=== PATIENT | male | born 1930 | race Caucasian/White ===

== ENCOUNTER 2019-04-07 05:51 | Day surgery (SDC) | payer OTHER ==
[2019-04-06 15:14] LABS: BASOPHILS # (AUTO) 0.1 X10'3 (0-0.2); BASOPHILS % (AUTO) 1.2 % (0-1); EOSINOPHILS # (AUTO) 0.1 X10'3 (0-0.9); EOSINOPHILS % (AUTO) 1.5 % (0-6); HEMOGLOBIN 13.3 g/dl (14.0-17.9); LYMPHOCYTES # (AUTO) 1.6 X10'3 (1.1-4.8); LYMPHOCYTES % (AUTO) 17.5 % (21-51); MEAN CORPUSCULAR HEMOGLOBIN 31.4 PG (27.0-31.0); MEAN CORPUSCULAR HGB CONC 33.2 g/dL (33.0-36.5); MEAN CORPUSCULAR VOLUME 94.7 FL (78-98); MEAN PLATELET VOLUME 8.5 FL (7.4-10.4); MONOCYTES # (AUTO) 0.8 X10'3 (0-0.9); MONOCYTES % (AUTO) 8.3 % (2-12); NEUTROPHILS # (AUTO) 6.7 X10'3 (1.8-7.7); NEUTROPHILS % (AUTO) 71.5 % (42-75); PLATELET COUNT 252 X10'3 (140-440); RED BLOOD COUNT 4.23 X10'6 (4.70-6.10); RED CELL DISTRIBUTION WIDTH 13.9 % (11.5-14.5); WHITE BLOOD COUNT 9.4 X10'3 (4.5-11.0)
[2019-04-06 15:18] LABS: ALBUMIN 3.5 G/DL (3.4-5.0); ANION GAP 6 (8-16); BLOOD UREA NITROGEN 29 MG/DL (7-18); BUN/CREATININE RATIO 22.7 (5.4-32.0); CALCIUM 8.7 MG/DL (8.5-10.1); CHLORIDE 109 MMOL/L (99-107); CREATININE 1.28 MG/DL (0.60-1.10); GLUCOSE 99 MG/DL (70-104); POTASSIUM 3.1 MMOL/L (3.5-5.1); SODIUM 145 MMOL/L (135-145); TOTAL CARBON DIOXIDE 29.8 MMOL/L (24-32); eGFR 53 ML/MIN
[2019-04-06 15:31] LABS: PARTIAL THROMBOPLASTIN TIME 30 SECONDS (22-32)
[2019-04-07] VITALS (17 sets, daily range): BP systolic 126–203; BP diastolic 62–105
[~2019-04-07] VITALS: Ht 182.9 cm; Wt 69.1 kg
[2019-04-07] MEDS ORDERED: LIDOcaine/PRILOcaine 5gm cream TP ONE (06:15)
[2019-04-07] MEDS ORDERED: diphenhydrAMINE 25mg capsule PO PRN (06:15)
[2019-04-07] MEDS ORDERED: normal saline 1,000 ML IV SCH (06:15)
[2019-04-07] MEDS ORDERED: acetylcysteine 200 MG/ml 4ml vial PO PRN (06:15)
[2019-04-07] MEDS ORDERED: LORazepam 0.5 MG tablet PO PRN (06:15)
[2019-04-07] MEDS ORDERED: FURO-149 PO (06:37)
[2019-04-07] MEDS ORDERED: ECHI350C PO (06:37)
[2019-04-07] MEDS ORDERED: CARV-50 PO (06:37)
[2019-04-07] MEDS ORDERED: GINK120C PO (06:37)
[2019-04-07] MEDS ORDERED: BUDE0.256 NEB (06:37)
[2019-04-07] MEDS ORDERED: LUTE1CAP6 PO (06:37)
[2019-04-07] MEDS ORDERED: ATOR40TA PO (06:37)
[2019-04-07] MEDS ORDERED: AMLO-314 PO (06:37)
[2019-04-07] MEDS ORDERED: CLOP75TA35 PO (06:37)
[2019-04-07] MEDS ORDERED: ASPI-1053 PO (06:37)
[2019-04-07] MEDS ORDERED: MELA3TAB64 PO (06:37)
[2019-04-07] MEDS ORDERED: LACT1CAP65 PO (06:37)
[2019-04-07] MEDS ORDERED: MAGN296S50 PO (06:37)
[2019-04-07] MEDS ORDERED: NIT5P TD (06:37)
[2019-04-07] MEDS ORDERED: DICL75TA5 PO (06:37)
[2019-04-07] MEDS ORDERED: MULT1TAB74 PO (06:37)
[2019-04-07] MEDS ORDERED: POTA10TA19 PO (06:37)
[2019-04-07] MEDS ORDERED: LOSA100T57 PO (06:37)
[2019-04-07] MEDS ORDERED: TIOT18CA3 INH (06:37)
[2019-04-07] MEDS ORDERED: verapamil 2.5 mg/ml inj IV ONE (07:36)
[2019-04-07] MEDS ORDERED: nitroGLYCERIN-Tridil 50MG/D5W 250 ML IV ONE (07:36)
[2019-04-07] MEDS ORDERED: midazolam 2 mg/2 ml injection ONE (07:36)
[2019-04-07] MEDS ORDERED: LIDOcaine 1% (10mg/ml)w/preservative injection 20ml MDV ONE (07:37)
[2019-04-07] MEDS ORDERED: heparin 1,000unit/ml 10ml vial 10 ML ONE (07:37)
[2019-04-07] MEDS ORDERED: fentaNYL/PF 50MCG/1 ML 2ML syringe ONE (07:37)
[2019-04-07] MEDS ORDERED: iohexol 350 MG/ML 50ML vial IV ONE (07:37)
[2019-04-07] MEDS ORDERED: iohexol 350MG/ML 100ml bottle IV ONE ×2 (07:37→08:40)
[2019-04-07] MEDS ORDERED: sodium bicarbonate (8.4%) inj. 75 ML in dextrose 5%-water 500 ML IV ONE (07:55)
[2019-04-07] MEDS ORDERED: acetylcysteine 200 MG/ml 4ml vial PO SCH (09:28)
[2019-04-07] MEDS ORDERED: potassium Cl 20 mEq SR tablet PO ONE (09:30)
[2019-04-07] MEDS ORDERED: potassium Cl 20 mEq SR tablet PO PRN (09:30)
[2019-04-07 11:11] LABS: ISTAT Hct MIX 36 %PCV (42-52); ISTAT O2 SATURATION MIX VENOUS 67 % (60-80); ISTAT SOURCE MIX
[2019-04-07 11:11] LABS: ISTAT HGB ART 12.2 g/dl (14.0-18.0); ISTAT Hct ART 36 %PCV (42-52); ISTAT O2 SATURATION ARTERIAL 97 % (95-98); ISTAT SOURCE ART
[2019-04-07 14:17] LABS: ALBUMIN 3.1 G/DL (3.4-5.0); ANION GAP 9 (8-16); BLOOD UREA NITROGEN 18 MG/DL (7-18); BUN/CREATININE RATIO 14.8 (5.4-32.0); CALCIUM 8.4 MG/DL (8.5-10.1); CHLORIDE 109 MMOL/L (99-107); CREATININE 1.22 MG/DL (0.60-1.10); GLUCOSE 111 MG/DL (70-104); POTASSIUM 3.1 MMOL/L (3.5-5.1); SODIUM 148 MMOL/L (135-145); TOTAL CARBON DIOXIDE 30.3 MMOL/L (24-32); eGFR 56 ML/MIN
[2019-04-07] MEDS ORDERED: potassium Cl 20 mEq SR tablet PO STA (14:43)
--- NOTE | 2019-04-07 16:00 | NUR ---
Problems reprioritized. Patient report given, questions answered & plan of care reviewed with MANDIE GRACE.
== END 2019-04-07 18:00 | disposition home or self-care (01) ==
LOC: SSTAY O 05:51
PROVIDERS: ATTEND Internal Medicine Cardiovascular Disease
DX: I25.10 Atherosclerotic heart disease of native coronary artery without angina pectoris (principal); I48.91 Unspecified atrial fibrillation; I35.0 Nonrheumatic aortic (valve) stenosis; E78.5 Hyperlipidemia, unspecified; Z87.891 Personal history of nicotine dependence; I50.30 Unspecified diastolic (congestive) heart failure; I11.0 Hypertensive heart disease with heart failure
CPT/HCPCS: 36415; 80048; 82803; 85014; 85025; 85610; 85730; 93005; 93460; 93567; 99152; 99153; C1769; C1894; J1644; J2001; J2250; J3010; J7030; Q0163; Q9967; A4620; A5120; J3490

== ENCOUNTER 2019-05-04 20:14 | Inpatient (IN) | payer MEDICARE, MEDICAID ==
[~2019-05-04] VITALS: Ht 182.9 cm; Wt 68.6 kg
[~2019-05-04 20:14] MED LIST: AMLO-314 PO; ASPI-1053 PO; ATOR40TA PO; BUDE0.256 NEB; CARV-50 PO; CLOP75TA35 PO; DICL75TA5 PO; ECHI350C PO; FURO-149 PO; GINK120C PO; LACT1CAP65 PO; LOSA100T57 PO; LUTE1CAP6 PO; MAGN296S50 PO; MELA3TAB64 PO; MULT1TAB74 PO; NIT5P TD; POTA10TA19 PO; TIOT18CA3 INH
[2019-05-04] MEDS ORDERED: normal saline 1000ml 1,000 ML IV ONE (20:20)
[2019-05-04] MEDS ORDERED: normal saline 1000ML IV soln IVB ONE (20:20)
--- NOTE | 2019-05-04 20:20 | NUR ---
[facility].
[2019-05-04 20:39] LABS: CLARITY,URINE CLEAR (Clear); COLOR,URINE YELLOW (Yellow); GLUCOSE, URINE NEGATIVE (Neg); KETONES,URINE NEGATIVE (Neg); LEUKOCYTE ESTERASE ,URINE TRACE (Neg); NITRITES, URINE NEGATIVE (Neg); OCCULT BLOOD,URINE NEGATIVE (Neg); PH,URINE 6.5 (4.8-8.0); PROTEIN,URINE NEGATIVE (Neg); UA COLLECTION TYPE URINAL; UROBILINOGEN,URINE 0.2 E.U/dL (0.2-1.0)
[2019-05-04 20:40] LABS: BASOPHILS # (AUTO) 0.1 X10'3 (0-0.2); BASOPHILS % (AUTO) 1.1 % (0-1); EOSINOPHILS # (AUTO) 0.4 X10'3 (0-0.9); EOSINOPHILS % (AUTO) 4.3 % (0-6); HEMATOCRIT 42.3 % (42.0-52.0); HEMOGLOBIN 14.2 g/dl (14.0-17.9); LYMPHOCYTES # (AUTO) 1.8 X10'3 (1.1-4.8); LYMPHOCYTES % (AUTO) 21.1 % (21-51); MEAN CORPUSCULAR HEMOGLOBIN 31.4 PG (27.0-31.0); MEAN CORPUSCULAR HGB CONC 33.5 g/dL (33.0-36.5); MEAN CORPUSCULAR VOLUME 93.6 FL (78-98); MONOCYTES # (AUTO) 0.8 X10'3 (0-0.9); MONOCYTES % (AUTO) 9.1 % (2-12); NEUTROPHILS # (AUTO) 5.6 X10'3 (1.8-7.7); NEUTROPHILS % (AUTO) 64.4 % (42-75); PLATELET COUNT 257 X10'3 (140-440); RED BLOOD COUNT 4.52 X10'6 (4.70-6.10); RED CELL DISTRIBUTION WIDTH 14.4 % (11.5-14.5); WHITE BLOOD COUNT 8.8 X10'3 (4.5-11.0)
[2019-05-04 20:45] LABS: PARTIAL THROMBOPLASTIN TIME 28 SECONDS (22-32)
--- NOTE | 2019-05-04 20:46 | NUR ---
neuropsych on line with patient
[2019-05-04 20:51] LABS: ALANINE AMINOTRANSFERASE 27 U/L (12-78); ALBUMIN 3.9 G/DL (3.4-5.0); ALKALINE PHOSPHATASE 94 IU/L (46-116); ANION GAP 8 (8-16); ASPARTATE AMINO TRANSFERASE 21 U/L (10-37); BILIRUBIN,TOTAL 0.5 MG/DL (0.1-1.0); BLOOD UREA NITROGEN 23 MG/DL (7-18); BUN/CREATININE RATIO 18.1 (5.4-32.0); CHLORIDE 108 MMOL/L (99-107); CREATININE 1.27 MG/DL (0.60-1.10); GLUCOSE 110 MG/DL (70-104); MAGNESIUM 2.2 MG/DL (1.5-2.4); POTASSIUM 3.4 MMOL/L (3.5-5.1); SODIUM 147 MMOL/L (135-145); TOTAL CARBON DIOXIDE 31.5 MMOL/L (24-32); TOTAL PROTEIN 7.9 G/DL (6.4-8.2); eGFR 54 ML/MIN
[2019-05-04 21:02] LABS: BACTERIA,URINE FEW /HPF (Neg); HYALINE CASTS 0-3 /LPF (NEGATIVE); MUCUS STRANDS NONE SEEN /LPF (Neg); RBC,URINE NONE SEEN /HPF (0-2); SQUAMOUS EPITHELIAL CELL,UR NONE SEEN /LPF (FEW); WBC,URINE 0-4 /HPF (0-4)
--- NOTE | 2019-05-04 21:07 | NUR ---
stroke nurse at bedside, neuro on tele cart, family at bedside. pt's symptoms are resolving.
--- NOTE | 2019-05-04 21:10 | NUR ---
level 1 stroke alert, pt was in [place] eating dinner with sudden onset of not speaking, staring off, he had right side arm and leg weakness. SOC for telemed. neuro consult, Dr. Jain Per family he is much improved no weakness noted, he is having some word finding difficulty and some right side visual loss. ambulate without difficulty, steady on feet. Dr. Jain discusses tPA with family and pt, they want to hold off for now.
[2019-05-04] MEDS ORDERED: potassium Cl 10 mEq/100mL bag IV ONE (21:25)
--- NOTE | 2019-05-04 21:40 | NUR ---
Dr. Jain cameras back in. Family at bedside. and pt state he is much better and will hold off on tPA. Plan to admit and obtain EEG tomorrow. Pt has proxismal afib.
[2019-05-04] MEDS ORDERED: MELA1TAB28 PO (22:40)
[2019-05-04] MEDS ORDERED: LUTE1CAP6 PO (22:40)
[2019-05-04] MEDS ORDERED: POTA20PA40 PO (22:40)
[2019-05-04] MEDS ORDERED: ECHI125T PO (22:40)
[2019-05-04] MEDS ORDERED: DICL75TA5 PO (22:40)
[2019-05-04] MEDS ORDERED: BILB1CAP PO (22:40)
[2019-05-04] MEDS ORDERED: ondansetron/PF 4mg/2ml inj IV PRN (23:00)
[2019-05-04] MEDS ORDERED: mag hydrox/Alum hydrox/simeth 30ml oral suspension PO PRN (23:00)
[2019-05-04] MEDS ORDERED: acetaminophen 325mg tablet PO PRN (23:00)
[2019-05-05] VITALS: BP 178/76
[2019-05-05 01:55] VITALS: BP 165/78
[2019-05-05] MEDS ORDERED: MELATONIN PO PRN (02:50)
[2019-05-05] MEDS ORDERED: PYRIDOXINE HCL PO PRN (02:50)
[2019-05-05] MEDS: ipratropium 0.5 MG/2.5ML nebule IH SCH ×4 (02:58→20:52)
[2019-05-05 06:00] VITALS: BP 164/72
[2019-05-05 06:08] LABS: BASOPHILS % (AUTO) 0.2 % (0-1); EOSINOPHILS # (AUTO) 0.3 X10'3 (0-0.9); EOSINOPHILS % (AUTO) 2.7 % (0-6); HEMATOCRIT 37.4 % (42.0-52.0); HEMOGLOBIN 12.7 g/dl (14.0-17.9); LYMPHOCYTES # (AUTO) 1.8 X10'3 (1.1-4.8); LYMPHOCYTES % (AUTO) 16.8 % (21-51); MEAN CORPUSCULAR HEMOGLOBIN 31.8 PG (27.0-31.0); MEAN CORPUSCULAR VOLUME 93.5 FL (78-98); MEAN PLATELET VOLUME 8.2 FL (7.4-10.4); MONOCYTES % (AUTO) 9.2 % (2-12); NEUTROPHILS # (AUTO) 7.7 X10'3 (1.8-7.7); NEUTROPHILS % (AUTO) 71.1 % (42-75); PLATELET COUNT 218 X10'3 (140-440); RED CELL DISTRIBUTION WIDTH 14.6 % (11.5-14.5); WHITE BLOOD COUNT 10.9 X10'3 (4.5-11.0)
--- NOTE | 2019-05-05 06:35 | NUR ---
Problems reprioritized. Patient report given, questions answered & plan of care reviewed with MANDIE TATE.
[2019-05-05] MEDS: carVEDilol 12.5mg tablet PO SCH ×2 (07:45→20:11)
[2019-05-05] MEDS: lactobacillus rhamnosus 10,000 MMU CELLS/CAPSULE PO SCH (07:46)
[2019-05-05] MEDS: multivitamins, therapeutics tablet PO SCH (07:46)
[2019-05-05] MEDS: amLODIPine 5mg tablet PO SCH (07:46)
[2019-05-05] MEDS: atorvastatin 20mg tablet PO SCH (07:47)
[2019-05-05] MEDS ORDERED: ZEAXANTHIN PO SCH (08:00)
[2019-05-05] MEDS ORDERED: heparin, porcine 5000 units/ml vial SQ SCH (08:00)
[2019-05-05] MEDS ORDERED: aspirin 81mg tab.chew PO SCH (08:00)
[2019-05-05] MEDS ORDERED: LUTEIN PO SCH (08:00)
[2019-05-05] MEDS ORDERED: clopidogrel 75mg tablet PO SCH (08:00)
[2019-05-05] MEDS: budesonide 0.5mg/2ml UD nebule IH SCH ×2 (08:09→20:52)
[2019-05-05 09:26] LABS: ALANINE AMINOTRANSFERASE 20 U/L (12-78); ALBUMIN 3.2 G/DL (3.4-5.0); ALKALINE PHOSPHATASE 75 IU/L (46-116); ANION GAP 10 (8-16); ASPARTATE AMINO TRANSFERASE 18 U/L (10-37); BILIRUBIN,TOTAL 0.6 MG/DL (0.1-1.0); BLOOD UREA NITROGEN 18 MG/DL (7-18); BUN/CREATININE RATIO 18.6 (5.4-32.0); CALCIUM 8.5 MG/DL (8.5-10.1); CHLORIDE 111 MMOL/L (99-107); CREATININE 0.97 MG/DL (0.60-1.10); GLUCOSE 103 MG/DL (70-104); POTASSIUM 3.1 MMOL/L (3.5-5.1); SODIUM 145 MMOL/L (135-145); TOTAL CARBON DIOXIDE 24.3 MMOL/L (24-32); TOTAL PROTEIN 6.4 G/DL (6.4-8.2); eGFR 73 ML/MIN
[2019-05-05] MEDS ORDERED: LOSA50TA64 PO (09:56)
[2019-05-05 10:00] VITALS: BP_SYST 141
[2019-05-05 18:00] VITALS: BP 179/77
[2019-05-05] MEDS ORDERED: potassium Cl 20 mEq SR tablet PO PRN ×3 (19:35→20:00)
[2019-05-05] MEDS ORDERED: potassium CL 10mEq/100ml bag 100 ML IV PRN ×2 (19:35→20:00)
[2019-05-05] MEDS: apixaban 5mg tablet PO SCH (20:11)
[2019-05-05] MEDS: potassium Cl 20 mEq SR tablet PO PRN ×2 (20:11→23:06)
[2019-05-05 22:55] VITALS: BP 149/62
[2019-05-06 02:00] VITALS: BP 139/80
[2019-05-06] MEDS: ipratropium 0.5 MG/2.5ML nebule IH SCH ×4 (02:00→20:37)
[2019-05-06 06:00] VITALS: BP 150/89
--- NOTE | 2019-05-06 06:26 | NUR ---
reported to days. noted pt's alarms intact. resting w/o distress.
--- NOTE | 2019-05-06 06:34 | NUR ---
Patient in room ORTHO 4018. I have received report from Kelly LOCKWOOD and had the opportunity to ask questions and assume patient care.
[2019-05-06 06:36] LABS: BASOPHILS # (AUTO) 0.1 X10'3 (0-0.2); BASOPHILS % (AUTO) 1.2 % (0-1); EOSINOPHILS # (AUTO) 0.2 X10'3 (0-0.9); EOSINOPHILS % (AUTO) 2.4 % (0-6); HEMATOCRIT 38.6 % (42.0-52.0); HEMOGLOBIN 13.2 g/dl (14.0-17.9); LYMPHOCYTES # (AUTO) 1.6 X10'3 (1.1-4.8); LYMPHOCYTES % (AUTO) 16.4 % (21-51); MEAN CORPUSCULAR HGB CONC 34.3 g/dL (33.0-36.5); MEAN CORPUSCULAR VOLUME 93.4 FL (78-98); MEAN PLATELET VOLUME 8.3 FL (7.4-10.4); MONOCYTES # (AUTO) 0.9 X10'3 (0-0.9); MONOCYTES % (AUTO) 9.5 % (2-12); NEUTROPHILS % (AUTO) 70.5 % (42-75); PLATELET COUNT 226 X10'3 (140-440); RED BLOOD COUNT 4.13 X10'6 (4.70-6.10); RED CELL DISTRIBUTION WIDTH 14.6 % (11.5-14.5); WHITE BLOOD COUNT 9.9 X10'3 (4.5-11.0)
[2019-05-06 06:53] LABS: ALANINE AMINOTRANSFERASE 19 U/L (12-78); ALBUMIN 3.1 G/DL (3.4-5.0); ALBUMIN/GLOBULIN RATIO 0.9 (1.1-1.5); ALKALINE PHOSPHATASE 80 IU/L (46-116); ANION GAP 10 (8-16); ASPARTATE AMINO TRANSFERASE 20 U/L (10-37); BILIRUBIN,TOTAL 0.9 MG/DL (0.1-1.0); BLOOD UREA NITROGEN 20 MG/DL (7-18); BUN/CREATININE RATIO 17.7 (5.4-32.0); CALCIUM 8.7 MG/DL (8.5-10.1); CHLORIDE 109 MMOL/L (99-107); CREATININE 1.13 MG/DL (0.60-1.10); GLUCOSE 105 MG/DL (70-104); POTASSIUM 3.6 MMOL/L (3.5-5.1); SODIUM 143 MMOL/L (135-145); TOTAL CARBON DIOXIDE 24.2 MMOL/L (24-32); TOTAL PROTEIN 6.5 G/DL (6.4-8.2); eGFR 62 ML/MIN
[2019-05-06 07:25] LABS: CHOL/HDL RATIO 2.9 (0.00-4.99); CHOLESTEROL 117 MG/DL (0-200); HDL CHOLESTEROL 41 MG/DL (35-60); LDL CHOLESTEROL 68 MG/DL (50-100); TRIGLYCERIDES 83 MG/DL (20-135)
[2019-05-06] MEDS: budesonide 0.5mg/2ml UD nebule IH SCH ×2 (07:33→20:37)
[2019-05-06] MEDS: atorvastatin 20mg tablet PO SCH (07:54)
[2019-05-06] MEDS: carVEDilol 12.5mg tablet PO SCH ×2 (07:54→19:43)
[2019-05-06] MEDS: multivitamins, therapeutics tablet PO SCH (07:54)
[2019-05-06] MEDS: apixaban 5mg tablet PO SCH ×2 (07:54→19:43)
[2019-05-06] MEDS: lactobacillus rhamnosus 10,000 MMU CELLS/CAPSULE PO SCH (07:54)
[2019-05-06] MEDS: amLODIPine 5mg tablet PO SCH (07:54)
[2019-05-06] MEDS: magnesium hydroxide 30ml (MOM) UD suspension PO PRN (09:29)
[2019-05-06 10:00] VITALS: BP 144/91
[2019-05-06] MEDS: polyethylene glycol 3350 17gm powd pack PO SCH ×2 (14:10→19:43)
--- NOTE | 2019-05-06 17:35 | NUR ---
Student documentation: I have reviewed and agree with all interventions, assessments performed and documented by Mal Francis.
[2019-05-06 18:00] VITALS: BP 159/86
--- NOTE | 2019-05-06 18:14 | NUR ---
Problems reprioritized. Patient report given, questions answered & plan of care reviewed with Susan LOCKWOOD.
--- NOTE | 2019-05-06 18:33 | NUR ---
Patient in room ORTHO 4018. I have received report from MANDIE Crews and had the opportunity to ask questions and assume patient care.
[2019-05-06 22:00] VITALS: BP 141/68
[2019-05-07 02:00] VITALS: BP 121/69
[2019-05-07] MEDS: ipratropium 0.5 MG/2.5ML nebule IH SCH ×2 (02:53→08:26)
[2019-05-07 06:00] VITALS: BP 129/59
[2019-05-07 06:07] LABS: BASOPHILS # (AUTO) 0.1 X10'3 (0-0.2); EOSINOPHILS # (AUTO) 0.2 X10'3 (0-0.9); EOSINOPHILS % (AUTO) 1.9 % (0-6); HEMATOCRIT 38.3 % (42.0-52.0); HEMOGLOBIN 13.1 g/dl (14.0-17.9); LYMPHOCYTES # (AUTO) 1.7 X10'3 (1.1-4.8); LYMPHOCYTES % (AUTO) 17.4 % (21-51); MEAN CORPUSCULAR HEMOGLOBIN 31.6 PG (27.0-31.0); MEAN CORPUSCULAR HGB CONC 34.2 g/dL (33.0-36.5); MEAN CORPUSCULAR VOLUME 92.3 FL (78-98); MEAN PLATELET VOLUME 7.9 FL (7.4-10.4); MONOCYTES # (AUTO) 1.1 X10'3 (0-0.9); MONOCYTES % (AUTO) 11.1 % (2-12); NEUTROPHILS # (AUTO) 6.8 X10'3 (1.8-7.7); NEUTROPHILS % (AUTO) 68.6 % (42-75); PLATELET COUNT 236 X10'3 (140-440); RED BLOOD COUNT 4.15 X10'6 (4.70-6.10); RED CELL DISTRIBUTION WIDTH 14.3 % (11.5-14.5); WHITE BLOOD COUNT 9.9 X10'3 (4.5-11.0)
--- NOTE | 2019-05-07 06:20 | NUR ---
Patient in room ORTHO 4018. I have received report from Susan LOCKWOOD and had the opportunity to ask questions and assume patient care.
--- NOTE | 2019-05-07 06:20 | NUR ---
Problems reprioritized. Patient report given, questions answered & plan of care reviewed with MANDIE Crews.
[2019-05-07 06:22] LABS: ALANINE AMINOTRANSFERASE 19 U/L (12-78); ALBUMIN/GLOBULIN RATIO 0.9 (1.1-1.5); ALKALINE PHOSPHATASE 78 IU/L (46-116); ANION GAP 7 (8-16); ASPARTATE AMINO TRANSFERASE 17 U/L (10-37); BILIRUBIN,TOTAL 0.7 MG/DL (0.1-1.0); BLOOD UREA NITROGEN 24 MG/DL (7-18); BUN/CREATININE RATIO 18.2 (5.4-32.0); CALCIUM 8.6 MG/DL (8.5-10.1); CHLORIDE 106 MMOL/L (99-107); CREATININE 1.32 MG/DL (0.60-1.10); GLUCOSE 114 MG/DL (70-104); MAGNESIUM 2.2 MG/DL (1.5-2.4); POTASSIUM 3.6 MMOL/L (3.5-5.1); SODIUM 140 MMOL/L (135-145); TOTAL PROTEIN 6.3 G/DL (6.4-8.2); eGFR 51 ML/MIN
[2019-05-07] MEDS: multivitamins, therapeutics tablet PO SCH (07:29)
[2019-05-07] MEDS: atorvastatin 20mg tablet PO SCH (07:29)
[2019-05-07] MEDS: carVEDilol 12.5mg tablet PO SCH (07:29)
[2019-05-07] MEDS: amLODIPine 5mg tablet PO SCH (07:29)
[2019-05-07] MEDS: apixaban 5mg tablet PO SCH (07:29)
[2019-05-07] MEDS: lactobacillus rhamnosus 10,000 MMU CELLS/CAPSULE PO SCH (07:29)
[2019-05-07] MEDS: magnesium hydroxide 30ml (MOM) UD suspension PO PRN (07:29)
[2019-05-07] MEDS: budesonide 0.5mg/2ml UD nebule IH SCH (08:26)
[2019-05-07 09:53] VITALS: BP 161/83
[2019-05-07] MEDS ORDERED: losartan 50mg tablet PO SCH (10:10)
[2019-05-07] MEDS ORDERED: APIX5TAB3 PO (11:44)
--- NOTE | 2019-05-07 14:05 | NUR ---
Patient stable for transfer to [facility] today. All belongings sent with patient, IV out.
--- NOTE | 2019-05-07 17:19 | NUR ---
Student documentation: I have reviewed and agree with all interventions, assessments performed and documented by Mal Francis.
== END 2019-05-07 13:55 | DRG 65 ==
LOC: ER 20:15 → ORTHO 4S 23:34 → CMPBEDREQ 23:37
PROVIDERS: ADMIT Internal Medicine; ATTEND Family Medicine
PROC: 4A10X4Z Monitoring of Central Nervous Electrical Activity, External Approach (ICD-10-PCS; principal; 2019-05-05)
DX: I63.9 Cerebral infarction, unspecified (principal); G81.91 Hemiplegia, unspecified affecting right dominant side; E87.0 Hyperosmolality and hypernatremia; N28.9 Disorder of kidney and ureter, unspecified; I10 Essential (primary) hypertension; E87.6 Hypokalemia; R47.01 Aphasia; I48.0 Paroxysmal atrial fibrillation; Z96.659 Presence of unspecified artificial knee joint; E78.00 Pure hypercholesterolemia, unspecified; E78.5 Hyperlipidemia, unspecified; I25.10 Atherosclerotic heart disease of native coronary artery without angina pectoris; I35.2 Nonrheumatic aortic (valve) stenosis with insufficiency; K59.00 Constipation, unspecified; Z79.01 Long term (current) use of anticoagulants; Z88.1 Allergy status to other antibiotic agents
CPT/HCPCS: 36415; 70450; 71045; 80053; 80061; 81001; 82948; 83735; 84484; 85025; 85610; 85730; 87088; 92508; 92616; 93005; 93306; 93880; 94640; 94760; 95816; 96361; 96374; 97110; 97112; 97116; 97162; 99291; G0378; J1644; J7626

== ENCOUNTER 2020-08-18 03:02 | Emergency (ER) | payer OTHER, MEDICARE ==
[~2020-08-18] VITALS: Ht 182.9 cm; Wt 70.0 kg
[2020-08-18 03:02] VITALS: BP 108/84
[~2020-08-18 03:02] MED LIST changes: -ASPI-1053 PO; +ASPI-611 PO; -BUDE0.256 NEB; +BUDE10.2 INH; -CLOP75TA35 PO; -DICL75TA5 PO; -ECHI350C PO; -FURO-149 PO; +FURO40TA4 PO; -GINK120C PO; -LOSA100T57 PO; +LOSA50TA64 PO; -MAGN296S50 PO; +MELA1TAB28 PO; -MELA3TAB64 PO; +MULT-620 PO; -MULT1TAB74 PO; -NIT5P TD; -POTA10TA19 PO; +[UNRECOGNIZED DRUG - OTHER] PO
[2020-08-18] MEDS ORDERED: FLO0.4C PO (07:39)
[2020-08-18] MEDS ORDERED: ALBU18HF2 INH (07:39)
[2020-08-18] MEDS ORDERED: POTA10TA19 PO (07:39)
[2020-08-18] MEDS ORDERED: FINA5TAB11 PO (07:39)
[2020-08-18] MEDS ORDERED: APIX5TAB3 PO (07:39)
[2020-08-18] MEDS ORDERED: MAGN400T39 PO (07:39)
== END 2020-08-18 04:23 | disposition home or self-care (01) ==
LOC: ER 03:02
DX: I50.9 Heart failure, unspecified (principal); R06.02 Shortness of breath; R60.0 Localized edema; I48.91 Unspecified atrial fibrillation; I25.10 Atherosclerotic heart disease of native coronary artery without angina pectoris; E78.00 Pure hypercholesterolemia, unspecified; J44.9 Chronic obstructive pulmonary disease, unspecified; Z86.73 Personal history of transient ischemic attack (TIA), and cerebral infarction without residual deficits; Z88.1 Allergy status to other antibiotic agents; Z79.82 Long term (current) use of aspirin; Z79.899 Other long term (current) drug therapy
CPT/HCPCS: 71045; 99284

== ENCOUNTER 2020-08-18 06:15 | Day surgery (SDC) | payer OTHER ==
[2020-08-17 15:46] LABS: BASOPHILS # (AUTO) 0.1 X10'3 (0-0.2); BASOPHILS % (AUTO) 0.9 % (0-1); EOSINOPHILS % (AUTO) 0.4 % (0-6); HEMATOCRIT 35.9 % (42.0-52.0); HEMOGLOBIN 11.7 g/dl (14.0-17.9); LYMPHOCYTES # (AUTO) 0.9 X10'3 (1.1-4.8); LYMPHOCYTES % (AUTO) 8.3 % (21-51); MEAN CORPUSCULAR HEMOGLOBIN 28.2 PG (27.0-31.0); MEAN CORPUSCULAR HGB CONC 32.4 g/dL (33.0-36.5); MEAN CORPUSCULAR VOLUME 86.8 FL (78-98); MEAN PLATELET VOLUME 8.1 FL (7.4-10.4); MONOCYTES # (AUTO) 0.9 X10'3 (0-0.9); MONOCYTES % (AUTO) 7.7 % (2-12); NEUTROPHILS # (AUTO) 9.4 X10'3 (1.8-7.7); NEUTROPHILS % (AUTO) 82.7 % (42-75); PLATELET COUNT 279 X10'3 (140-440); RED BLOOD COUNT 4.14 X10'6 (4.70-6.10); RED CELL DISTRIBUTION WIDTH 16.3 % (11.5-14.5); WHITE BLOOD COUNT 11.3 X10'3 (4.5-11.0)
[2020-08-17 15:49] LABS: PARTIAL THROMBOPLASTIN TIME 27 SECONDS (22-32)
[2020-08-17 16:08] LABS: ALANINE AMINOTRANSFERASE 57 U/L (12-78); ALBUMIN 3.4 G/DL (3.4-5.0); ALBUMIN/GLOBULIN RATIO 0.9 (1.1-1.5); ALKALINE PHOSPHATASE 123 IU/L (46-116); ANION GAP 8 (8-16); ASPARTATE AMINO TRANSFERASE 30 U/L (10-37); BILIRUBIN,TOTAL 0.5 MG/DL (0.1-1.0); BLOOD UREA NITROGEN 29 MG/DL (7-18); BUN/CREATININE RATIO 22.3 (5.4-32.0); CALCIUM 8.8 MG/DL (8.5-10.1); CHLORIDE 107 MMOL/L (99-107); GLUCOSE 106 MG/DL (70-104); POTASSIUM 4.1 MMOL/L (3.5-5.1); SODIUM 144 MMOL/L (135-145); TOTAL CARBON DIOXIDE 28.9 MMOL/L (24-32); TOTAL PROTEIN 7.2 G/DL (6.4-8.2); eGFR 52 ML/MIN
[2020-08-18] VITALS (13 sets, daily range): BP systolic 130–153; BP diastolic 66–102
[~2020-08-18] VITALS: Ht 182.9 cm; Wt 71.8 kg
[2020-08-18] MEDS ORDERED: LORazepam 0.5 MG tablet PO PRN (06:45)
[2020-08-18] MEDS ORDERED: normal saline 1,000 ML IV SCH (06:45)
[2020-08-18] MEDS ORDERED: LIDOcaine/PRILOcaine 5gm cream TP ONE (06:50)
[2020-08-18] MEDS: diphenhydrAMINE 25mg capsule PO PRN ×2 (07:16→07:18)
[2020-08-18] MEDS ORDERED: midazolam 2 mg/2 ml injection ONE (07:17)
[2020-08-18] MEDS ORDERED: iohexol 350MG/ML 100ml bottle IV ONE (07:17)
[2020-08-18] MEDS ORDERED: LIDOcaine 1% (10mg/ml)w/preservative injection 20ml MDV ONE (07:17)
[2020-08-18] MEDS ORDERED: heparin 1,000unit/ml 10ml vial 10 ML ONE (07:17)
[2020-08-18] MEDS ORDERED: fentaNYL/PF 50MCG/1 ML 2ML syringe ONE (07:17)
[2020-08-18] MEDS ORDERED: nitroGLYCERIN-Tridil 50MG/D5W 250 ML IV ONE (07:17)
[2020-08-18] MEDS ORDERED: verapamil 2.5 mg/ml inj IV ONE (07:17)
[2020-08-18] MEDS ORDERED: iohexol 350 MG/ML 50ML vial IV ONE (07:17)
[2020-08-18] MEDS ORDERED: ALBU18HF2 INH (07:39)
[2020-08-18] MEDS ORDERED: FINA5TAB11 PO (07:39)
[2020-08-18] MEDS ORDERED: POTA10TA19 PO (07:39)
[2020-08-18] MEDS ORDERED: APIX5TAB3 PO (07:39)
[2020-08-18] MEDS ORDERED: FLO0.4C PO (07:39)
[2020-08-18] MEDS ORDERED: MAGN400T39 PO (07:39)
[2020-08-18] MEDS ORDERED: furosemide 20 MG/2 ML vial IV ONE ×2 (10:45→12:05)
--- NOTE | 2020-08-18 12:00 | NUR ---
Called Dr. Nena vargas pt's increased work of breathing and oxygen requirements. Orders received for breathing treatment, 20mg IV lasix & 20MEQ KDur. Addendum: 08/18/20 at 1214 by Itzel Li RN Turned off IV fluids, reported to MD vargas pt's wheezing. RT paged.
[2020-08-18] MEDS ORDERED: potassium Cl 20 mEq SR tablet PO STA (12:05)
[2020-08-18] MEDS ORDERED: albuterol 2.5 MG/3 ML nebule NEB ONE (12:20)
--- NOTE | 2020-08-18 12:52 | NUR ---
800mL of clear, yellow urine voided in urinal. Expiratory wheezes still present, RT paged again for treatment.
[2020-08-19 01:06] LABS: ISTAT HGB ART 11.2 g/dl (14.0-18.0); ISTAT Hct ART 33 %PCV (42-52); ISTAT O2 SATURATION ARTERIAL 88 % (95-98); ISTAT SOURCE ART
== END 2020-08-18 14:00 | disposition home or self-care (01) ==
LOC: SSTAY O 06:15
PROVIDERS: ATTEND Internal Medicine Cardiovascular Disease
DX: R53.83 Other fatigue (principal); I25.10 Atherosclerotic heart disease of native coronary artery without angina pectoris; I35.0 Nonrheumatic aortic (valve) stenosis; I13.0 Hypertensive heart and chronic kidney disease with heart failure and stage 1 through stage 4 chronic kidney disease, or unspecified chronic kidney disease; N18.9 Chronic kidney disease, unspecified; I50.32 Chronic diastolic (congestive) heart failure; I48.0 Paroxysmal atrial fibrillation; E78.5 Hyperlipidemia, unspecified; J44.9 Chronic obstructive pulmonary disease, unspecified; Z86.73 Personal history of transient ischemic attack (TIA), and cerebral infarction without residual deficits; Z79.899 Other long term (current) drug therapy; Z98.890 Other specified postprocedural states; Z87.891 Personal history of nicotine dependence; Z88.1 Allergy status to other antibiotic agents; Z80.3 Family history of malignant neoplasm of breast; Z82.49 Family history of ischemic heart disease and other diseases of the circulatory system
CPT/HCPCS: 36415; 80053; 82803; 83880; 84443; 85014; 85025; 85610; 85730; 93005; 93460; 93567; 94640; 99152; 99153; C1769; C1894; J1644; J1940; J2001; J2250; J3010; J7030; Q9967; 94760; A4620; A5120; A6258; C1751; J3490; Q0163

== ENCOUNTER 2020-10-05 09:52 | Outpatient (CLI) | payer OTHER ==
[~2020-10-05] VITALS: Ht 180.3 cm; Wt 68.0 kg
[~2020-10-05 09:52] MED LIST changes: +ALBU18HF2 INH; +APIX5TAB3 PO; +FINA5TAB11 PO; +FLO0.4C PO; -LOSA50TA64 PO; -LUTE1CAP6 PO; +MAGN400T39 PO; +POTA10TA19 PO
[2020-10-05 11:03] LABS: BASOPHILS # (AUTO) 0.1 X10'3 (0-0.2); EOSINOPHILS # (AUTO) 0.2 X10'3 (0-0.9); LYMPHOCYTES # (AUTO) 1.1 X10'3 (1.1-4.8); MEAN CORPUSCULAR VOLUME 86.9 FL (78-98); MONOCYTES # (AUTO) 0.7 X10'3 (0-0.9); MONOCYTES % (AUTO) 7.4 % (2-12)
[2020-10-05 11:04] LABS: BASOPHILS % (AUTO) 0.9 % (0-1); EOSINOPHILS % (AUTO) 2.1 % (0-6); HEMOGLOBIN 11.8 g/dl (14.0-17.9); LYMPHOCYTES % (AUTO) 11.2 % (21-51); MEAN CORPUSCULAR HEMOGLOBIN 28.4 PG (27.0-31.0); MEAN CORPUSCULAR HGB CONC 32.7 g/dL (33.0-36.5); MEAN PLATELET VOLUME 7.7 FL (7.4-10.4); NEUTROPHILS # (AUTO) 7.7 X10'3 (1.8-7.7); NEUTROPHILS % (AUTO) 78.4 % (42-75); PLATELET COUNT 270 X10'3 (140-440); RED BLOOD COUNT 4.14 X10'6 (4.70-6.10); WHITE BLOOD COUNT 9.9 X10'3 (4.5-11.0)
[2020-10-05 11:15] LABS: PARTIAL THROMBOPLASTIN TIME 30 SECONDS (22-32)
[2020-10-05 11:17] LABS: ALANINE AMINOTRANSFERASE 38 U/L (12-78); ALBUMIN 3.2 G/DL (3.4-5.0); ALBUMIN/GLOBULIN RATIO 0.8 (1.1-1.5); ALKALINE PHOSPHATASE 146 IU/L (46-116); ANION GAP 8 (8-16); ASPARTATE AMINO TRANSFERASE 28 U/L (10-37); BILIRUBIN,TOTAL 0.5 MG/DL (0.1-1.0); BLOOD UREA NITROGEN 28 MG/DL (7-18); BUN/CREATININE RATIO 19.3 (5.4-32.0); CALCIUM 8.9 MG/DL (8.5-10.1); CHLORIDE 107 MMOL/L (99-107); CREATININE 1.45 MG/DL (0.60-1.10); GLUCOSE 100 MG/DL (70-104); POTASSIUM 3.9 MMOL/L (3.5-5.1); SODIUM 144 MMOL/L (135-145); TOTAL PROTEIN 7.1 G/DL (6.4-8.2); eGFR 46 ML/MIN
[2020-10-05 11:39] LABS: PLATELET ESTIMATE NORMAL
[2020-10-05 11:40] LABS: ELLIPTOCYTES 1+
[2020-10-05 11:42] LABS: ACANTHOCYTES FEW; ANISOCYTOSIS 1+
[2020-10-05 11:45] LABS: BURR CELLS FEW; SCHISTOCYTES 1+
[2020-10-05] MEDS ORDERED: albuterol 2.5 MG/3 ML nebule NEB ONE (13:55)
[2020-10-05 13:59] LABS: ABG BASE EXCESS -0.6 mmol/L (-2.0-2.0); ABG HCO3 23.2 mmol/L (22.0-26.0); ABG OXYGEN SATURATION 94.2 % (94-97); ABG PCO2 (T) 35.6 mmHg (35.0-48.0); ABG PO2 (T) 68.5 mmHg (75.0-100.0); ALLEN'S TEST POSITIVE; FCOHb 0.8 % (0.0-3.9); FMetHb 0.1 % (0.0-1.5); FO2Hb 93.4 % (94-97); TOTAL HEMOGLOBIN 12.9 G/dl (14.0-18.0)
[2020-10-27] MEDS ORDERED: BETA1TAB20 PO (08:48)
[2020-10-27] MEDS ORDERED: LOSA25TA41 PO (08:48)
[2020-10-27] MEDS ORDERED: TRAZ-251 PO (08:48)
== END 2020-10-05 23:59 | disposition home or self-care (01) ==
LOC: VAS 09:52
PROVIDERS: ATTEND Internal Medicine Cardiovascular Disease
DX: I35.0 Nonrheumatic aortic (valve) stenosis (principal); I65.23 Occlusion and stenosis of bilateral carotid arteries; J40 Bronchitis, not specified as acute or chronic; J43.9 Emphysema, unspecified
CPT/HCPCS: 36415; 36600; 71046; 71275; 74174; 80053; 82803; 85008; 85018; 85025; 85610; 85730; 93308; 93880; 94060; 94727; 94729; 94760

== ENCOUNTER 2020-10-06 14:38 | Outpatient (CLI) | payer OTHER ==
[~2020-10-06] VITALS: Ht 177.8 cm; Wt 72.4 kg
[~2020-10-06 14:38] MED LIST changes: +iohexol 350 MG/ML 50ML vial IV ONE; +iohexol 350MG/ML 100ml bottle IV ONE
[2020-10-06 15:18] VITALS: BP 132/77
[2020-10-27] MEDS ORDERED: LOSA25TA41 PO (08:48)
[2020-10-27] MEDS ORDERED: TRAZ-251 PO (08:48)
[2020-10-27] MEDS ORDERED: BETA1TAB20 PO (08:48)
[2020-11-02] MEDS ORDERED: POTA10TA19 PO (10:43)
[2020-11-02] MEDS ORDERED: FURO40TA4 PO (10:43)
[2020-11-02] MEDS ORDERED: FER325T PO (10:43)
== END 2020-10-06 23:59 | disposition home or self-care (01) ==
LOC: TAVR 14:38
PROVIDERS: ATTEND Internal Medicine Cardiovascular Disease
DX: I48.91 Unspecified atrial fibrillation (principal); I48.0 Paroxysmal atrial fibrillation; I35.0 Nonrheumatic aortic (valve) stenosis; I65.29 Occlusion and stenosis of unspecified carotid artery; Z79.01 Long term (current) use of anticoagulants
CPT/HCPCS: 93005; 93308; Q9967

== ENCOUNTER 2020-10-28 18:51 | Emergency (ER) | payer OTHER, MEDICARE, MEDICAID ==
[~2020-10-28] VITALS: Ht 180.3 cm; Wt 67.7 kg
[~2020-10-28 18:51] MED LIST changes: +BETA1TAB20 PO; +LOSA25TA41 PO; -MELA1TAB28 PO; +TRAZ-251 PO; -iohexol 350 MG/ML 50ML vial IV ONE; -iohexol 350MG/ML 100ml bottle IV ONE
[2020-10-28 20:23] VITALS: BP 128/75
[2020-11-02] MEDS ORDERED: POTA10TA19 PO (10:43)
[2020-11-02] MEDS ORDERED: FURO40TA4 PO (10:43)
[2020-11-02] MEDS ORDERED: FER325T PO (10:43)
== END 2020-10-28 21:12 | disposition home or self-care (01) ==
LOC: ER 18:52
DX: L76.22 Postprocedural hemorrhage of skin and subcutaneous tissue following other procedure (principal); I25.10 Atherosclerotic heart disease of native coronary artery without angina pectoris; I50.9 Heart failure, unspecified; E78.00 Pure hypercholesterolemia, unspecified; J44.9 Chronic obstructive pulmonary disease, unspecified; I48.91 Unspecified atrial fibrillation; Z86.73 Personal history of transient ischemic attack (TIA), and cerebral infarction without residual deficits; Z88.1 Allergy status to other antibiotic agents; Z79.82 Long term (current) use of aspirin; Z79.01 Long term (current) use of anticoagulants; Z79.899 Other long term (current) drug therapy; Y83.9 Surgical procedure, unspecified as the cause of abnormal reaction of the patient, or of later complication, without mention of misadventure at the time of the procedure
CPT/HCPCS: 99284

== ENCOUNTER 2020-12-21 13:38 | Emergency (ER) | payer OTHER, MEDICARE, MEDICAID ==
[~2020-12-21] VITALS: Ht 180.3 cm; Wt 65.9 kg
[~2020-12-21 13:38] MED LIST changes: +FER325T PO; -[UNRECOGNIZED DRUG - OTHER] PO
[2020-12-21 14:16] LABS: BASOPHILS # (AUTO) 0.1 X10'3 (0-0.2); BASOPHILS % (AUTO) 0.7 % (0-1); EOSINOPHILS % (AUTO) 0 % (0-6); HEMOGLOBIN 12.2 g/dl (14.0-17.9); LYMPHOCYTES # (AUTO) 0.7 X10'3 (1.1-4.8); LYMPHOCYTES % (AUTO) 4.2 % (21-51); MEAN CORPUSCULAR HEMOGLOBIN 29.4 PG (27.0-31.0); MEAN CORPUSCULAR HGB CONC 33.1 g/dL (33.0-36.5); MEAN CORPUSCULAR VOLUME 88.8 FL (78-98); MEAN PLATELET VOLUME 7.4 FL (7.4-10.4); MONOCYTES # (AUTO) 1.3 X10'3 (0-0.9); MONOCYTES % (AUTO) 8.6 % (2-12); NEUTROPHILS # (AUTO) 13.5 X10'3 (1.8-7.7); NEUTROPHILS % (AUTO) 86.5 % (42-75); PLATELET COUNT 216 X10'3 (140-440); RED BLOOD COUNT 4.16 X10'6 (4.70-6.10); RED CELL DISTRIBUTION WIDTH 17.8 % (11.5-14.5); WHITE BLOOD COUNT 15.6 X10'3 (4.5-11.0)
[2020-12-21 14:31] LABS: ALANINE AMINOTRANSFERASE 30 U/L (12-78); ALBUMIN 3.5 G/DL (3.4-5.0); ALBUMIN/GLOBULIN RATIO 0.8 (1.1-1.5); ALKALINE PHOSPHATASE 162 IU/L (46-116); ANION GAP 9 (8-16); ASPARTATE AMINO TRANSFERASE 25 U/L (10-37); BILIRUBIN,TOTAL 0.7 MG/DL (0.1-1.0); BLOOD UREA NITROGEN 29 MG/DL (7-18); CALCIUM 8.9 MG/DL (8.5-10.1); CHLORIDE 102 MMOL/L (99-107); CREATININE 1.45 MG/DL (0.60-1.10); GLUCOSE 133 MG/DL (70-104); LIPASE 68 U/L (73-393); POTASSIUM 3.8 MMOL/L (3.5-5.1); SODIUM 140 MMOL/L (135-145); TOTAL CARBON DIOXIDE 28.6 MMOL/L (24-32); TOTAL PROTEIN 7.8 G/DL (6.4-8.2); eGFR 46 ML/MIN
[2020-12-21 19:33] LABS: CLARITY,URINE SLIGHTLY CLOUDY (Clear); COLOR,URINE YELLOW (Yellow); GLUCOSE, URINE NEGATIVE (Neg); KETONES,URINE NEGATIVE (Neg); LEUKOCYTE ESTERASE ,URINE SMALL (Neg); NITRITES, URINE NEGATIVE (Neg); OCCULT BLOOD,URINE TRACE-INTACT (Neg); PH,URINE 5.5 (4.8-8.0); PROTEIN,URINE TRACE mg/dl (Neg); UROBILINOGEN,URINE 0.2 E.U/dL (0.2-1.0)
[2020-12-21 19:35] LABS: UA COLLECTION TYPE URINAL
[2020-12-21 19:43] LABS: TROPONIN I < 0.04 NG/ML (0.0-0.05)
[2020-12-21 19:44] LABS: BACTERIA,URINE 3+ /HPF (Neg); RBC,URINE 0-2 /HPF (0-2); SQUAMOUS EPITHELIAL CELL,UR FEW /LPF (FEW); WBC CLUMPS,URINE MODERATE /HPF (NEGATIVE)
[2020-12-21] MEDS ORDERED: CefTRIAXone 2gm/D5W 50ml BAG 50 ML IV ONE (19:45)
[2020-12-21] MEDS ORDERED: CEPH-585 PO (19:58)
[2020-12-21 20:52] VITALS: BP 140/77
== END 2020-12-21 22:00 | disposition home or self-care (01) ==
LOC: ER 13:38
DX: N39.0 Urinary tract infection, site not specified (principal); R10.84 Generalized abdominal pain; I48.91 Unspecified atrial fibrillation; I25.10 Atherosclerotic heart disease of native coronary artery without angina pectoris; I50.9 Heart failure, unspecified; E78.00 Pure hypercholesterolemia, unspecified; J44.9 Chronic obstructive pulmonary disease, unspecified; F17.200 Nicotine dependence, unspecified, uncomplicated; Z86.73 Personal history of transient ischemic attack (TIA), and cerebral infarction without residual deficits; Z98.890 Other specified postprocedural states; Z88.1 Allergy status to other antibiotic agents; Z79.82 Long term (current) use of aspirin; Z79.2 Long term (current) use of antibiotics; Z79.899 Other long term (current) drug therapy
CPT/HCPCS: 36415; 71045; 74176; 80053; 81001; 83605; 83690; 84145; 84484; 85025; 87040; 87077; 87088; 87186; 93005; 96365; 99285; J0696